=== PATIENT | male | born 2005 | race Caucasian/White ===

== ENCOUNTER 2023-05-11 21:42 | Emergency (ER) | payer OTHER, SELFPAY ==
[2023-05-11 21:43] VITALS: BP 140/90; BMI 21.9
--- NOTE | 2023-05-11 22:40 | ED.GENMED ---
History of Present Illness
General
Chief Complaint: Skin Problem
Exam Limitations: none
Time Seen by Provider: 05/11/23 22:14
Nursing documentation reviewed up to this point in time: agreed with
Travel History
Have you had any contact with someone who has COVID-19?: No
Do you have any symptoms of coronavirus? Fever > 100 degrees, chills, cough, shortness of breath, sore throat, loss of taste or smell, muscle aches, or headache?: No
History of Present Illness
History of Present Illness:
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
Allergic amoxicillin does not know the reaction no prior episodes
Past History
Past History
ED Past Medical History: None
ED Past Surgical History: Orthopedic (Left ACL repair)
Social History
Tobacco: Non-smoker
Alcohol: None
Drug: None
Personal: Single
Living: alone
Employment: Employed
Review of Systems
Review of Systems
All Other Systems: Not applicable
Constitutional: Reports fever
Respiratory: Reports no symptoms
Cardiac: Reports no symptoms
ABD/GI: Reports no symptoms
: Reports no symptoms
Musculoskeletal: Denies joint pain (Pain at the right elbow joint he is able to move without difficulty)
Skin: Reports other (Redness skin on the right elbow)
Phy Exam
Physical Exam
Physical Exam:
Physical Exam
General: no apparent distress, not acutely ill
Neck: No jaundice
Heart: s1/s2 regular rate and rhythm, no murmur. equal radial pulses.
Lungs: no acute respiratory distress. clear bilaterally
Neuro: alert and oriented. no focal neurological deficits
Skin: no rash
Psychiatric: well kept. interactive and cooperative
Extremities: Swelling redness surrounding the olecranon bursa on the right no fluctuance
Course
Orders/Labs/Results
Orders:
Orders
05/11/23 22:33
Doxycycline [Vibramycin] 100 mg PO NOW STA
Ibuprofen [Motrin] 600 mg PO NOW STA
05/11/23 22:40
Sling Right-Treatment ONCE
Vital Signs
Initial and Last Documented VS:
Initial Vital Signs
Temp Pulse Resp BP Pulse Ox
97.9 F 98 16 140/90 99
05/11/23 21:43 05/11/23 21:43 05/11/23 21:43 05/11/23 21:43 05/11/23 21:43
Last Documented Vital Signs
Temp Pulse Resp BP Pulse Ox
97.9 F 98 16 140/90 99
05/11/23 21:43 05/11/23 21:43 05/11/23 21:43 05/11/23 21:43 05/11/23 21:43
MDM/Problems Addressed
Differential Diagnosis Includes:
Olecranon bursitis cellulitis
MDM/Problems Addressed:
Swollen right elbow
*Pulse Oximetry
Patient hypoxic: no
*Critical Care Note
Total Time (30-74mins, 75-104mins- exclusive of procedures): Not Applicable
Update Note
Update Note:
Update patient with cellulitis likely early bursitis noted particular fluid to aspirate, will start on NSAIDs, antibiotics sling orthopedic follow-up ER promptly if worsening symptoms
ED Attending Note
-
Portions of this chart may have been created with voice recognition software.� Occasional wrong word or��sound alike� substitutions may have occurred due to the inherent limitations of voice recognition software.
Discharge Plan
Departure
Patient Disposition: Home (Routine Discharge)
Date of Disposition: 05/11/23
Time of Disposition: 22:52
Patient with high blood pressure during this ER visit?: No
Condition: Good
Discharge Problem:
Bursitis, olecranon
Instructions: Cellulitis (Skin Infection), Adult (DC), Bursitis ED
Prescriptions:
New
doxycycline hyclate 100 mg tablet
100 mg PO BID Qty: 20 0RF
ibuprofen 600 mg tablet
600 mg PO Q6H PRN (Reason: fever or pain) Qty: 20 0RF
Referrals:
UNKNOWN - PT DOES,NOT KNOW [Family Provider] -
Carmine Gutierrez MD [Active] - Next open appointment
Activity Restrictions/Additional Instructions:
Use sling, antibiotics as prescribed Motrin or Tylenol for pain follow-up with orthopedics return to the ER for worsening symptoms
Interventions
Interventions:
*Risk Screen - Suicide Last Done: 05/11/23 21:43
*Neglect/Abuse Screening Last Done: 05/11/23 21:43
ED- Fall Risk Assessment Last Done: 05/11/23 21:43
*ED COVID-19 Vaccine History Last Done: 05/11/23 21:43
[2023-05-11] MEDS: MOTRIN 600 MG PO (23:09)
[2023-05-11] MEDS: VIBRAMYCIN 100 MG PO (23:10)
[2023-05-11 23:38] VITALS: BP 129/80
== END 2023-05-11 23:38 | disposition home or self-care (01) ==
LOC: EMR 21:42
PROVIDERS: EMERGENCY PHYSICIAN Emergency Medicine
DX: M70.21 Olecranon bursitis, right elbow (principal); M25.521 Pain in right elbow; Z88.1 Allergy status to other antibiotic agents
CPT/HCPCS: 99283

== ENCOUNTER 2023-05-12 23:13 | Inpatient (IN) | payer OTHER, SELFPAY ==
[2023-05-12 18:53] VITALS: BP 135/89
[2023-05-12 19:16] LABS: % Basophils 0.4 % (0-2); % Eosinophils 2.3 % (0-6); % Immature Granulocytes 0.2 % (0-0.5); % Lymphocytes 18.9 % (20.5-51.1); % Monocytes 9.6 % (1.7-9.3); % Neutrophils 68.6 % (42.2-75.2); Absolute Eosinophils 0.2 10^3/uL (0-0.7); Absolute Lymphocytes 1.8 10^3/uL (1.2-3.4); Absolute Monocytes 0.9 10^3/uL (0.1-0.6); Absolute Neutrophils 6.6 10^3/uL (1.4-6.5); Hematocrit 43.5 % (39.0-52.0); Hemoglobin 15.2 g/dL (13.0-18.0); Mean Corp Hgb Conc. 34.9 g/dL (33.0-37.0); Mean Corpuscular Hgb 29.7 pg (27.0-31.0); Mean Platelet Volume 10.1 fL (7.4-10.4); Nucleated Red Blood Cells % 0 % (-); Platelet Count 229 10^3/uL (130-400); Red Blood Cell Count 5.12 10^6/uL (4.70-6.10); Red Cell Dist. Width 12.4 % (11.5-14.5); White Blood Cell Count 9.6 10^3/uL (4.8-10.8)
[2023-05-12 19:36] LABS: ALT (SGPT) 19 U/L (0-50); AST (SGOT) 28 U/L (17-59); Albumin 4.9 g/dl (3.5-5.0); Alkaline Phosphatase 88 U/L (38-126); Blood Urea Nitrogen 12 mg/dl (9-20); Calcium 9.9 mg/dl (8.4-10.2); Carbon Dioxide 28 mmol/L (22-30); Chloride 100 mmol/L (98-107); Glucose 101 mg/dl (70-99); Potassium 3.9 mmol/L (3.5-5.1); Sodium 138 mmol/L (135-145); Total Bilirubin 0.7 mg/dl (0.2-1.3); Total Protein 7.6 g/dl (6.3-8.2); eGFR > 60.00
--- NOTE | 2023-05-12 20:16 | ED.GENMED ---
History of Present Illness
<LEROY Naik - Last Filed: 05/13/23 00:08>
General
Chief Complaint: Fainting/Passed Out
Source: patient
Exam Limitations: none
Time Seen by Provider: 05/12/23 20:15
Nursing documentation reviewed up to this point in time: agreed with
Travel History
Have you had any contact with someone who has COVID-19?: No
Do you have any symptoms of coronavirus? Fever > 100 degrees, chills, cough, shortness of breath, sore throat, loss of taste or smell, muscle aches, or headache?: No
History of Present Illness
History of Present Illness:
Patient is a 17-year-old male who presents to the ER for syncope. Patient was seen here yesterday for swelling and pain to his right elbow. Patient reports he has had swelling to his right elbow for the past couple days however redness started
recently. He was seen here yesterday as documented for that and discharged on antibiotics. Today however he reports he presents back to the ER because of an episode of syncope. Prior to arrival he was laying in bed got up to use the back urinated
normally then after felt lightheaded while walking back to his room passed out and then got up and vomited after.
Patient notes that he has felt chills throughout the day and had a low grade temp of 100.2 .
He does report that The redness to his right arm has spread however he does feel that the swelling is decreased .
Patient did take 2 doses of his Doxycycline.
Past History
<LEROY Naik - Last Filed: 05/13/23 00:08>
Past History
ED Past Medical History: None
ED Past Surgical History: Orthopedic (Left ACL repair)
Social History
Tobacco: Non-smoker
Alcohol: None
Drug: None
Personal: Single
Living: alone
Employment: Employed
Review of Systems
<LEROY Naik - Last Filed: 05/13/23 00:08>
Review of Systems
Allergies reviewed?: Yes
All Other Systems: ROS reviewed and negative except as documented in HPI and ROS
Constitutional: Reports no symptoms
EENT: Reports no symptoms
Respiratory: Reports no symptoms
Cardiac: Reports no symptoms
ABD/GI: Reports nausea, vomiting and other (Nausea vomiting x 1 episode after syncope )
: Reports no symptoms
Musculoskeletal: Reports other (right elbow redness /discomfort )
Skin: Reports other (see above )
Neurological: Reports no symptoms
Psychiatric: Reports no symptoms
Phy Exam
<LEROY Naik - Last Filed: 05/13/23 00:08>
General Physical Exam
General Presentation: no apparent distress
General age: appears stated age
General Skin: warm and dry
General Habitus: normal
General Mental: alert
Neurological Exam
Neurological Exam: alert and oriented x3
Musculoskeletal Exam
Musculoskeletal Exam: other (rue with strong pulses + erythema to right elbow mildly tender upon palpation full ROM and good ROM on exam )
Skin Exam
Skin Exam: normal color and warm/dry
Psychiatric Exam
Psychiatric Exam: normal mood/affect
Course
<LEROY Naik - Last Filed: 05/13/23 00:08>
Orders/Labs/Results
Orders:
Orders
05/12/23 18:55
Electrocardiogram (*1) Urgent
Reason for Study: Syncope
EKG- Treatment ONCE
05/12/23 19:00
Complete Blood Count/With Diff Urgent
Comprehensive Metabolic Panel Urgent
05/12/23 20:35
0.9% Sodium Chloride 1000 ml [Nss] 1,000 ml IV BOLUS
05/12/23 22:00
Lactic Acid Q4H
Comment: CANCEL 2nd LACTIC ACID IF 1st LACTIC ACID IS LESS THAN 2
Blood Culture Q30M
ARNOLDO Source: Blood/Venous
Specimen Description:
Blood Culture Q30M
ARNOLDO Source: Blood/Venous
Specimen Description:
05/12/23 22:28
Clindamycin 600 mg/50 ml [Cleocin] 600 mg in 50 ml IV NOW
05/12/23 22:37
MRSA Screen Routine
ARNOLDO Source: Nose
Specimen Description:
05/12/23 22:39
Admit/Transfer Patient As Directed
Co-Sign Provider:
Level of Care: Inpatient admission
Assign to:: Telemetry
Physician / Group: quang chow
Diagnosis: right elbow cellulitis concern septic bursitis
Reason for Telemetry: Syncope
Date to Stop Telemetry: 05/14/23
Time to Stop Telemetry: 11:00
Reason for Hospitalization: right elbow cellulitis concern septic bursitis
Expected length of stay greater than two midnights?: Yes
ELOS- Estimated Length of Stay in days: 3
I certify the patient meets the requirements for IP care: Yes
Code Status As Directed
Resuscitation Status: Full Code
05/12/23 22:56
Vancomycin [Vancocin] 1,500 mg 0.9% Sodium Chloride [Nss] 20 ml 0.9% Sodium Chloride 250 ml [Nss] 250 ml IV NOW
05/12/23 23:45
VANCOMYCIN Pharmacy to Dose [VANCOCIN Pharmacy to Dose] 1 each Pharmacy To Prepare [Call Pharmacy To Prepare] 0 ml IV PER PROTOCOL
05/13/23 00:51
0.9% Sodium Chloride 1000 ml [Nss] 1,000 ml IV 100 mls/hr
Acetaminophen [Tylenol] 650 mg PO Q4HPRN PRN
Ondansetron Injectable [Zofran] 4 mg IV Q6HPRN PRN
Tramadol HCl [Ultram] 50 mg PO Q6HPRN PRN
05/13/23 00:51
Activity As Directed
Activity Level: As Tolerated
Pneumatic Compression Sleeves As Directed
Type: Knee high
Vital Signs As Directed
Frequency: Per unit guidelines
Ot Eval And Treat Routine
Pt Eval And Treat Routine
Activity Level: As Tolerated
DX Deep Vein Thrombosis Video Routine
05/13/23 06:00
Basic Metabolic Panel IN AM
Complete Blood Count/With Diff IN AM
05/13/23 Dinner
Regular
At Your Request: Non-Participating
Does patient need a safe tray?: No
05/14/23 06:00
Basic Metabolic Panel IN AM
Complete Blood Count/With Diff IN AM
05/15/23 06:00
Basic Metabolic Panel IN AM
Complete Blood Count/With Diff IN AM
Abnormal Lab Results
05/12/23
19:00
Absolute Neuts (auto) 6.6 H 10^3/uL
(1.4-6.5)
Absolute Monos (auto) 0.9 H 10^3/uL
(0.1-0.6)
Lymphocytes % 18.9 L %
(20.5-51.1)
Monocytes % 9.6 H %
(1.7-9.3)
Glucose 101 H mg/dl
(70-99)
05/12/23 19:00
05/12/23 19:00
Vital Signs
Initial and Last Documented VS:
Initial Vital Signs
Temp Pulse Resp BP Pulse Ox
98.9 F 96 18 135/89 99
05/12/23 18:53 05/12/23 18:53 05/12/23 18:53 05/12/23 18:53 05/12/23 18:53
Last Documented Vital Signs
Temp Pulse Resp BP Pulse Ox
97.9 F 84 18 116/52 99
05/13/23 01:15 05/13/23 01:15 05/13/23 01:15 05/13/23 01:15 05/13/23 01:15
Sales Route Driver consulted with Physician
Sales Route Driver consulted with physician?: Yes
Name of Physician Consulted: Erik
<Sundar Valencia MD - Last Filed: 05/13/23 01:25>
Orders/Labs/Results
Orders:
Orders
05/12/23 18:55
Electrocardiogram (*1) Urgent
Reason for Study: Syncope
EKG- Treatment ONCE
05/12/23 19:00
Complete Blood Count/With Diff Urgent
Comprehensive Metabolic Panel Urgent
05/12/23 20:35
0.9% Sodium Chloride 1000 ml [Nss] 1,000 ml IV BOLUS
05/12/23 22:00
Lactic Acid Q4H
Comment: CANCEL 2nd LACTIC ACID IF 1st LACTIC ACID IS LESS THAN 2
Blood Culture Q30M
ARNOLDO Source: Blood/Venous
Specimen Description:
Blood Culture Q30M
ARNOLDO Source: Blood/Venous
Specimen Description:
05/12/23 22:28
Clindamycin 600 mg/50 ml [Cleocin] 600 mg in 50 ml IV NOW
05/12/23 22:37
MRSA Screen Routine
ARNOLDO Source: Nose
Specimen Description:
05/12/23 22:39
Admit/Transfer Patient As Directed
Co-Sign Provider:
Level of Care: Inpatient admission
Assign to:: Telemetry
Physician / Group: quang chow
Diagnosis: right elbow cellulitis concern septic bursitis
Reason for Telemetry: Syncope
Date to Stop Telemetry: 05/14/23
Time to Stop Telemetry: 11:00
Reason for Hospitalization: right elbow cellulitis concern septic bursitis
Expected length of stay greater than two midnights?: Yes
ELOS- Estimated Length of Stay in days: 3
I certify the patient meets the requirements for IP care: Yes
Code Status As Directed
Resuscitation Status: Full Code
05/12/23 22:56
Vancomycin [Vancocin] 1,500 mg 0.9% Sodium Chloride [Nss] 20 ml 0.9% Sodium Chloride 250 ml [Nss] 250 ml IV NOW
05/12/23 23:45
VANCOMYCIN Pharmacy to Dose [VANCOCIN Pharmacy to Dose] 1 each Pharmacy To Prepare [Call Pharmacy To Prepare] 0 ml IV PER PROTOCOL
05/13/23 00:51
0.9% Sodium Chloride 1000 ml [Nss] 1,000 ml IV 100 mls/hr
Acetaminophen [Tylenol] 650 mg PO Q4HPRN PRN
Ondansetron Injectable [Zofran] 4 mg IV Q6HPRN PRN
Tramadol HCl [Ultram] 50 mg PO Q6HPRN PRN
05/13/23 00:51
Activity As Directed
Activity Level: As Tolerated
Pneumatic Compression Sleeves As Directed
Type: Knee high
Vital Signs As Directed
Frequency: Per unit guidelines
Ot Eval And Treat Routine
Pt Eval And Treat Routine
Activity Level: As Tolerated
DX Deep Vein Thrombosis Video Routine
05/13/23 06:00
Basic Metabolic Panel IN AM
Complete Blood Count/With Diff IN AM
05/13/23 Dinner
Regular
At Your Request: Non-Participating
Does patient need a safe tray?: No
05/14/23 06:00
Basic Metabolic Panel IN AM
Complete Blood Count/With Diff IN AM
05/15/23 06:00
Basic Metabolic Panel IN AM
Complete Blood Count/With Diff IN AM
Abnormal Lab Results
05/12/23
19:00
Absolute Neuts (auto) 6.6 H 10^3/uL
(1.4-6.5)
Absolute Monos (auto) 0.9 H 10^3/uL
(0.1-0.6)
Lymphocytes % 18.9 L %
(20.5-51.1)
Monocytes % 9.6 H %
(1.7-9.3)
Glucose 101 H mg/dl
(70-99)
05/12/23 19:00
05/12/23 19:00
Vital Signs
Initial and Last Documented VS:
Initial Vital Signs
Temp Pulse Resp BP Pulse Ox
98.9 F 96 18 135/89 99
05/12/23 18:53 05/12/23 18:53 05/12/23 18:53 05/12/23 18:53 05/12/23 18:53
Last Documented Vital Signs
Temp Pulse Resp BP Pulse Ox
97.9 F 84 18 116/52 99
05/13/23 01:15 05/13/23 01:15 05/13/23 01:15 05/13/23 01:15 05/13/23 01:15
<LEROY Naik - Last Filed: 05/13/23 00:08>
MDM/Problems Addressed
Differential Diagnosis Includes:
Not limited to vasovagal episode syncope episode, worsening cellulitis of right elbow
MDM/Problems Addressed:
Patient is a 17-year-old male who was seen here yesterday for bursitis/redness to right elbow patient today reports increasing redness to the area of low-grade fevers. Patient also did have a syncopal episode prior to arrival he was in bed all day
not feeling well got up to use the bathroom and urinated after felt dizzy lightheaded and passed out and then vomited. Patient presents awake alert no acute distress he is afebrile here with a normal white count. On exam however he does have
significant redness around the right elbow. He does have good range of motion less likely septic arthritis. Pt evaluated by DR Valencia . With worsening redness and on Oral antibx will adm for cellulitis . syncope likely from possible pain. pt stable
in no distress.
<LEROY Naik - Last Filed: 05/13/23 00:08>
*Pulse Oximetry
Patient hypoxic: no
*Critical Care Note
Total Time (30-74mins, 75-104mins- exclusive of procedures): Not Applicable
Data Reviewed
Review of Other/Old Records Reveals: Other (previous ED visit )
Source: patient
ED Attending Note
<LEROY Naik - Last Filed: 05/13/23 00:08>
-
Portions of this chart may have been created with voice recognition software.� Occasional wrong word or��sound alike� substitutions may have occurred due to the inherent limitations of voice recognition software.
<Sundar Valencia MD - Last Filed: 05/13/23 01:25>
ED Attending Note
Patient seen and examined by attending physician: Yes
ED Attending Note:
Patient presents to ED secondary to worsening pain and redness over his right elbow, despite taking antibiotics for the past 24 hours. Patient reports temp of 100.8 at home earlier today. In addition, patient reports feeling dizzy and not feeling
well all day long, along with multiple vomiting episodes. Today, as he was walking back from the restroom, he felt extremely lightheaded along with elbow pain, and subsequently found himself lying on the floor. Patient was attended to by his
girlfriend quickly. At the time of evaluation, patient denies headache. Denies chest palpitations. Denies diarrhea. Denies history of skin infection. Denies history of injury to his elbow.
Physical Exam
General: mild distress, not acutely ill. afebrile
Head: nc/at. eomi
Neck: supple. no meningeal signs.
Heart: s1/s2 regular rate and rhythm, no murmur. equal radial pulses.
Lungs: no acute respiratory distress. clear bilaterally
Abdomen: normal bowel sounds. not tender.
Neuro: alert and oriented. no focal neurological deficits
Skin: no rash
Psychiatric: well kept. interactive and cooperative
Extremities: swelling/erythema/warmth/tenderness noted over right olecranon, with normal range of motion.
History and exam concerning for worsening bursitis versus cellulitis, less likely septic arthritis. Syncopal episode at home, likely mediated by pain along with vagal response. Patient will be admitted for IV antibiotics and further evaluation.
Discharge Plan
Departure
Patient Disposition: Admit
Date of Disposition: 05/12/23
Time of Disposition: 21:47
Presentation/result/management discussed w/ accepting MD/DO: Hospitalist
Patient with high blood pressure during this ER visit?: Yes
Condition: Fair
Covid-19: Not Applicable
Discharge Problem:
Cellulitis of right elbow
Interventions
Interventions:
*Risk Screen - Suicide Last Done: 05/13/23 00:58
*Neglect/Abuse Screening Last Done: 05/12/23 18:53
ED- Fall Risk Assessment Last Done: 05/12/23 21:10
*ED COVID-19 Vaccine History Last Done: 05/13/23 00:58
ED- Cardiac Assessment Last Done: 05/12/23 23:44
ED- Neurological Assessment Last Done: 05/12/23 23:44
[2023-05-12] MEDS: NSS 1000 IV (21:06)
--- NOTE | 2023-05-12 22:12 | HPS.HSE ---
Addendum entered and electronically signed by Felton Flanagan DO 05/12/23 23:53:
Patient seen and examined independently. Agree with findings and plan as set forth by LEROY Chin.
Patient is a 17y M with no significant PMH who presents to ED complaining of 3 days of R elbow pain. Patient states that he was doing repetitive yard work, but denies any injury, trauma, etc. He noted increased swelling and redness around the
elbow last PM and presented to the ED for evaluation. He was started on PO doxycycline and has taken two doses of this thus far. Today, he felt lightheaded and woozy while walking out of the bathroom and notes that he sat down and then passed out.
He briefly lost consciousness and was woken by his girlfriend. He then felt nauseated and had emesis.
Patient was noted at home to have fever of 100.8. He returned to the ED for further evaluation.
Ass:
Septic Bursitis Right Elbow
Fever secondary to the above
Vasovagal Syncope secondary to the above
Plan:
Admit for further evaluation and treatment given persistent / worsening symptoms despite PO abx.
Monitor on tele overnight given syncope - but seems likely vasovagal.
Patient with some tightness during ROM, but no exquisite pain to suggest septic arthritis.
Ortho evaluation in the AM.
Change back to PO abx once clinical improvement is noted.
Check Lyme status.
Follow for any new / worsening symptoms.
Original Note:
Family Physician
-
Family Physician: * NONE
Chief Complaint
-
Right elbow swelling/erythema/pain
History of Present Illness
17-year-old male who was seen in the ER yesterday for swelling, pain to his right elbow for the past couple days. He reports pain with movement of his elbow. He was started on doxycycline of which she had took 2 doses. He reports feeling chills
throughout today . States he took his temperature before he went to the bathroom it was 99.8 upon walking back from the bathroom he felt like he was going to pass out he sat himself down to the the chair then his girlfriend walked in and he felt
like he was going to vomit. He reports his temperature after that was 100.8. He reports the erythema to his elbow is expanding up on his arm since yesterday. He states he was doing yard work with mulching and weeding Tuesday to Tuesday then
developed erythema and pain to elbow on Tuesday. He denies headache, chest pain, palpitations, shortness breath, cough, abdominal pain, nausea, vomiting, diarrhea, urinary symptoms. He has past medical history of anxiety, depression, nicotine vape
use.
Medical History
Past Medical History
Past Medical History: Reports Other (Anxiety, depression, nicotine vape use)
Past Surgical History: Reports Other (Left ACL repair)
Social History
Tobacco: Vaping
Alcohol: None
Drug: None
Personal: Single
Living: Alone
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
Family History
Family History: Adopted
Allergies / Home Medications
Allergies reflects when Allergies were last updated in [facility].
Home Medications with original date entered in [facility]
Allergy/Medication List:
Allergies
Allergy/AdvReac Type Severity Reaction Status Date / Time
amoxicillin Allergy Unknown Verified 05/12/23 18:54
Home Medications
doxycycline hyclate 100 mg tablet 100 mg PO BID #20 tabs 05/11/23
5-HTP 18.8 mg-tyrosine 187.5 [id number]-chrom capsule 1 cap PO DAILY 05/12/23
ibuprofen 600 mg tablet 600 mg PO Q6HPRN PRN fever or pain 05/12/23
therapeutic multivitamin 1 tab PO DAILY 05/12/23
Review of Systems
-
History Source: Patient and Family (Girlfriend at bedside)
A 12 point ROS was completed and negative except as noted: Yes
Constitutional: Reports Fever and Chills; Denies Fatigue
EENT: Denies Sore Throat or Runny Nose
Respiratory: Denies Cough or Trouble Breathing
Cardiac: Denies Chest Pain, Diaphoresis, Palpitations or Syncope
Abdomen/GI: Denies Abdominal Pain, Nausea, Vomiting, Diarrhea or Constipated
: Denies Dysuria, Frequency, Flank Pain, Incontinence or Difficulty Voiding
Musculoskeletal: Reports Joint Pain and Joint Swelling (With erythema to right elbow expanding above and below)
Skin: Denies Itching or Rash
Neurological: Reports Dizzy; Denies Headache
Endocrine: Reports No Symptoms
Hematologic/Lymphatic: Reports No Symptoms
Psych: Reports Calm
Physical Exam
Vital Signs
Vital Signs
Temp Pulse Resp BP Pulse Ox
98.9 F 74 14 135/89 100
05/12/23 18:53 05/12/23 22:03 05/12/23 22:03 05/12/23 18:53 05/12/23 21:53
Physical Exam
General: Pain, Fever and Chills
HEENT: NormoCephalic, Anicteric, PERRLA, [place] Conjunctivae and No Ptosis
Respiratory: Clear; No Wheezes, Rales or Rhonchi
Cardiac: S1/S2 and Regular Rhythm; No Murmur, Rub, Gallop or Peripheral Edema
Breast: Deferred by me
GI: Soft, Non Tender, Non Distended, Normal Bowel Sounds and No Hepatosplenomegaly
Rectal: Deferred by Provider
Genito-urinary: Deferred by me
Musculoskeletal: No Clubbing, No Cyanosis and Other (With erythema to right elbow expanding above and below); No Edema, Left Upper Extremity, Edema, Right Upper Extremity, Edema, Left Lower Extremity or Edema, Right Lower Extremity
Skin: Warm and Dry; No Rash
Neuro: AO x 3, No Motor Deficits, Nonfocal/grossly intact, Cranial Nerves Intact and No Sensory Deficits; No Slurred Speech, Facial Droop, Tremors or Sedated
Psych: Calm
Laboratory Results
-
05/12/23 19:00
05/12/23 19:00
Laboratory Results
Total Bilirubin 0.7 mg/dl (0.2-1.3) 05/12/23 19:00
AST 28 U/L (17-59) 05/12/23 19:00
ALT 19 U/L (0-50) 05/12/23 19:00
Alkaline Phosphatase 88 U/L (38-126) 05/12/23 19:00
Impression/Plan
-
Impression/plan:
Admit to MedSurg
#Right elbow cellulitis/olecranon bursitis concern septic bursitis
-Blood cultures x 2
-Follow CBC, BMP
-Tylenol for fever
-Iv Vancomycin
- Check MRSA swab
- consult ortho- dr gutierrez made aware
#Anxiety/depression
Patient takes gusb-sop-zorzsfj 5 HTP vitamin along with multivitamin
#Nicotine vape use daily
Cessation advised
DVT prophylaxis
SCDs
Full code
[2023-05-12 22:21] LABS: Lactic Acid 0.8 mmol/L (0.7-2.0)
[2023-05-12 22:45] VITALS: BMI 21.1
[2023-05-12 23:37] VITALS: BP 125/82
[2023-05-12] MEDS: VANCOCIN 300 ML IV (23:42)
[2023-05-12] MEDS: VANCOCIN 300 MG IV (23:42)
[2023-05-13] VITALS (10 sets, daily range): BP systolic 75–125; BP diastolic 51–88; BMI 20.7
[2023-05-13] MEDS: NSS 1000 IV ×2 (01:11→10:27)
--- NOTE | 2023-05-13 01:33 | PTCARENOTE ---
Addendum entered by Collins Pennington RN 05/13/23 03:32:
stopped Vancocin at 01:30. Restarted at slower rate at 03:30. PRESENTATION TEAM MEMBER states to give IV Benadryl and wait an hour before restarting.
Original Note:
Patient came up from the ED with IV Vancocin running at 125ml/hr. Patient color was red. Answered all admission questions okay. Patient then felt pruritus and uncomfortable. This nurse stopped the IV Vancocin, flushed the tubing and messaged the
PRESENTATION TEAM MEMBER. Order for Benadryl obtained. Patient denies SOB. No swelling noted and telemetry reading normal sinus rhythm.
[2023-05-13] MEDS: BENADRYL 25 MG IV (01:53)
[2023-05-13 06:29] LABS: % Basophils 0.4 % (0-2); % Eosinophils 3.4 % (0-6); % Immature Granulocytes 0.1 % (0-0.5); % Lymphocytes 26.8 % (20.5-51.1); % Monocytes 11.7 % (1.7-9.3); % Neutrophils 57.6 % (42.2-75.2); Absolute Eosinophils 0.3 10^3/uL (0-0.7); Absolute Lymphocytes 2.1 10^3/uL (1.2-3.4); Absolute Monocytes 0.9 10^3/uL (0.1-0.6); Absolute Neutrophils 4.5 10^3/uL (1.4-6.5); Hemoglobin 14.3 g/dL (13.0-18.0); Mean Corpuscular Hgb 29.1 pg (27.0-31.0); Mean Corpuscular Volume 85.5 fL (80.0-94.0); Mean Platelet Volume 10.4 fL (7.4-10.4); Nucleated Red Blood Cells % 0 % (-); Platelet Count 211 10^3/uL (130-400); Red Blood Cell Count 4.91 10^6/uL (4.70-6.10); Red Cell Dist. Width 12.5 % (11.5-14.5); White Blood Cell Count 7.8 10^3/uL (4.8-10.8)
[2023-05-13 06:47] LABS: Blood Urea Nitrogen 12 mg/dl (9-20); Calcium 9.4 mg/dl (8.4-10.2); Carbon Dioxide 25 mmol/L (22-30); Chloride 102 mmol/L (98-107); Estimated Creatinine Clearance > 125 ml/min; Glucose 89 mg/dl (70-99); Potassium 4.1 mmol/L (3.5-5.1); Sodium 139 mmol/L (135-145); eGFR > 60.00
--- NOTE | 2023-05-13 07:15 | W.PN.UPDATE ---
Update Note
Progress Note Update
Full H&P to follow
17-year-old male admitted for right elbow septic bursitis.
Patient examined this morning; redness and swelling about the right elbow without apparent effusion. No significant palpable fluid collection of the bursa
Recommend empiric treatment is being given at this time. Orthopedic surgery will continue to follow to monitor for collection of purulent fluid that may need to be decompressed. Can consider either MSK ultrasound or MRI for further evaluation for
fluid collection if needed beyond physical examination
--- NOTE | 2023-05-13 08:22 | PHA.VAN.IN ---
Assessment
- Assessment
Renal Function: Appears similar to baseline
AUC Dosing Plan
- Dosing Variables
Dosing Weight (kg): 75
Dosing CrCl (ml/min): 125
Vd coefficient (L/kg): 0.7
- Empiric Dosing
Initial / Loading Dose: 1500mg - 05/11 23:42
Maintenance Regimen: Vanc 1000mg Q8H - first dose at noon then Q8 from 2200
Estimated AUC (mcg*h/mL): 557
Estimated Peak (mcg*h/mL): 32.9
Estimated Trough (mcg/ml): 15.4
Estimated Half Life (H): 6.4
Given age, patient likely to have increased clearance compared to predictions based on population-PK
- Monitoring
No levels ordered at this time: consider levels in next few days
Pharmacokinetics Vancomycin I
- -
Patient Age: 17
Patient Sex: Male
Vancomycin Day #: 1
Indication: Skin And Soft Tissue
Requesting Provider: Nancy Santiago
Pertinent Antimicrobial Allergies:
amoxicillin - unknown
Height / Weight:
Height 6 ft 3 in
Actual Weight 75.041 kg
- Vital Signs / Lab Results
Temp Pulse Resp BP Pulse Ox
97.8 F 71 18 102/62 98
05/13/23 04:04 05/13/23 04:04 05/13/23 04:04 05/13/23 04:04 05/13/23 04:04
Lab Results - Hematology
05/12/23 05/13/23
19:00 05:22
WBC 9.6 7.8
Lab Results - Chemistry
05/12/23 05/13/23
19:00 05:22
BUN 12 12
Creatinine 0.8 0.8
Estimated Creat Clear > 125
Albumin 4.9
05/12/23 05/13/23
22:00 01:45
Lactic Acid 0.8 Cancelled
--- NOTE | 2023-05-13 09:28 | W.PN.HOSP.TC ---
Today's Communication/Plan
-
see A/P
Assessment / Plan
Assessment / Plan
HPI: 17y M with no significant PMH who presented to ED complaining of 3 days of R elbow pain.�Patient states that he was doing repetitive yard work, but denies any injury, trauma, etc.�He noted increased swelling and redness around the elbow and
presented to the ED for evaluation 2 days ago.� He was started on PO doxycycline and has taken two doses thus far.�
On DOA, he felt lightheaded and woozy while walking out of the bathroom and notes that he sat down and then passed out.�He briefly lost consciousness and was woken by his girlfriend. He then felt nauseated and had emesis.
Patient was noted at home to have fever of 100.8.� He returned to the ED for further evaluation.
A/P:
# Septic Bursitis Right Elbow, failed outpt PO Abx with doxycycline
Follow blood Cx
Cont Abx, change vanc to Linezolid (RN informed that pt intolerant of vanc)
Follow Lyme serology
ortho following, apparently could not tap R elbow
IR CS to attempt US guided arthrocentesis
ID CS
OT CS
# Vasovagal Syncope secondary to the above
tele noted bradycardia (likely physiological due to sleeping)
Cont to monitor tele
DVT ppx: SCD
FC
DW RN
DW girlfriend at bedside
Anticipated Discharge: Within 24 hours
Subjective/Interval History
-
Date of Service: May 13, 2023
Objective Data
-
Labs:
Laboratory Results
05/13/23
05:22
WBC 7.8
Hgb 14.3
Hct 42.0
Plt Count 211
Sodium 139
Potassium 4.1
Chloride 102
Carbon Dioxide 25
BUN 12
Creatinine 0.8
Glucose 89
Calcium 9.4
Vital Signs:
Vital Signs
Temp Pulse Resp BP Pulse Ox
36.6 C 58 16 108/63 99
05/13/23 07:05 05/13/23 07:05 05/13/23 07:05 05/13/23 07:05 05/13/23 07:05
I&O
05/12/23 05/13/23 05/14/23
06:59 06:59 06:59
Intake Total 120 / 120
Balance 120 / 120
Review of Systems
-
All other systems: Reviewed and negative
Physical Exam
-
General: Well Developed, Well Nourished, No Apparent Distress, Comfortable and Conversant; Negative Respiratory Distress
HEENT: Normocephalic, Atraumatic, Nose Appears Normal and Ears Appear Normal; Negative Oxygen
Respiratory: Clear to Auscultation and Non Labored Respirations; Negative Accessory Resp Muscle Use
Cardiac: Regular Rhythm and S1/S2
GI: Soft, Nontender, Nondistended and Normal Bowel Sounds
Skin: Warm, Dry and Other (R elbow redness, swelling)
Neuro: Awake, Alert, Oriented and AO x 3
Psych: Calm and Intact Judgement/Insight
Data Reviewed
-
Labs: Labs Reviewed by me
[2023-05-13] MEDS: ZYVOX 600 MG 300 IV ×2 (10:26→21:55)
--- NOTE | 2023-05-13 10:32 | CON.ID ---
Chief Complaint / Past History
Chief Complaint
redness, swelling over the elbow
History of Present Illness
Mr Piper is a 17 year old male without significant past medical history who presented here for a 3 day history of progressive right elbow pain, swelling after doing repetitive yard work. He was started on doxycycline and took two doses, then felt
light headed walking to the bathroom, sat down and passed out. Noted fever at home to 100.8. Presented here
Since arrival here no judith fevers, BP stable, wbc 9.6 on arrival and 7.8 today, hgb 14, plt 211, cr 0.8, blood cultures x2 in progress, mrsa screen pending, started on vancomycin and clindamycin, later with some pruritus and switched to linezolid.
Overnight with improved erythema and swelling. ID is consulted for assistance with management.
Past History
Additional Past Medical History:
Anxiety, depression, nicotine vape use
Additional Past Surgical History:
Left ACL repair
Allergy History:
amoxicillin Allergy (Verified 05/12/23 18:54)
Unknown
Medications Reviewed: Yes
Social History
Tobacco: Vaping
Alcohol: None
Drug: None
Family History
Family History: Not Pertinent
Review of Systems
Review of Systems
General: Fever; Negative Chills
All systems: All other systems were reviewed and were negative
Vital Signs
Temp Pulse Resp BP Pulse Ox
97.8 F 58 16 108/63 99
05/13/23 07:05 05/13/23 07:05 05/13/23 07:05 05/13/23 07:05 05/13/23 07:05
Physical Exam
Physical Exam
Constitutional: No Acute Distress
Cardiovascular: Regular Rate and S1/S2; Negative Murmur or Rub
Pulmonary: Clear and Symmetric; Negative Wheezes, Rales or Rhonchi
Gastrointestinal: Soft, Non Tender, Non Distended and Normal Bowel Sounds
Extremities: Other (moderate swelling of the right elbow, erythema regressing, area is somewhat fluctuant)
Skin: Warm and Dry; Negative Rash or Jaundice
Lab / Diagnostic Study Results
05/13/23 05:22
05/13/23 05:22
Abs Immat Gran (auto) 0.0 10^3/uL (0-0.05) 05/13/23 05:22
Absolute Neuts (auto) 4.5 10^3/uL (1.4-6.5) 05/13/23 05:22
Absolute Lymphs (auto) 2.1 10^3/uL (1.2-3.4) 05/13/23 05:22
Absolute Monos (auto) 0.9 10^3/uL (0.1-0.6) H 05/13/23 05:22
Absolute Basos (auto) 0.0 10^3/uL (0-0.2) 05/13/23 05:22
Immature Gran % 0.1 % (0-0.5) 05/13/23 05:22
Neutrophils % 57.6 % (42.2-75.2) 05/13/23 05:22
Lymphocytes % 26.8 % (20.5-51.1) 05/13/23 05:22
Monocytes % 11.7 % (1.7-9.3) H 05/13/23 05:22
Eosinophils % 3.4 % (0-6) 05/13/23 05:22
Basophils % 0.4 % (0-2) 05/13/23 05:22
Lactic Acid Cancelled 05/13/23 01:45
Microbiology Results
Micro:
05/12/23 22:00 Blood Culture - Pending
Blood/Venous
05/12/23 22:00 Blood Culture - Pending
Blood/Venous
05/13/23 00:01 MRSA Screen - Pending
Nose
Assessment / Plan
Septic Bursitis
- pruritus with vancomycin was likely red man syndrome
- switch linezolid to oral tomorrow - to complete 14 day total course
- hold tramadol while on linezolid
- reviewed that relapse is possible post treatment, if that is the case, then would need to consider bursectomy
- stable for dc from ID perspective
--- NOTE | 2023-05-13 15:39 | CM ---
Addendum entered by Raquel Floyd 05/13/23 15:42:
Pharmacy is [facility]. PCP is [facility] in [place], [place].
Original Note:
Initial assessment completed with patient who is a student at [employer]. He is independent, drives. No DME, no in-home services. Anticipate no needs at discharge.
--- NOTE | 2023-05-13 16:21 | W.PN.UPDATE ---
Update Note
Progress Note Update
US did not show significant joint effusion of the right elbow. There was a small amount of bursal fluid, approximately 4 cc of blood tinged cloudy fluid was aspirated and sent for laboratory analysis. No fluid remaining in the bursa after
aspiration.
--- NOTE | 2023-05-13 16:35 | CON.ORTHO ---
Consultation
-
Date/Time Consultation Requested: 05/12/2023 2314
Date/Time Consultation Performed: 05/13/2023 0700
Requesting Provider: LEROY Santiago
Performing Provider: BRIE Davis, Dr. Joseph Dao
Reason for Consultation: R elbow septic bursitis
Consultation - Orthopedics
History
17-year-old male presenting to [facility] emergency room with 3 days of right elbow pain. No specific injury or trauma but is relatively active with with yard work. He was seen earlier in the week previously with concern for cellulitis of the
elbow was placed on oral antibiotics however he is progressively worsened with elevated temperature and reported disorientation.
Allergies / Home Medications
Allergy/AdvReac Type Severity Reaction Status Date / Time
amoxicillin Allergy Unknown Verified 05/12/23 18:54
vancomycin Allergy Itching/'hot Verified 05/13/23 16:26
all over'
Medication Instructions Recorded
doxycycline hyclate 100 mg tablet 100 mg PO BID #20 tabs 05/11/23
5-HTP 18.8 mg-tyrosine 187.5 1 cap PO DAILY 05/12/23
[id number]-chrom
capsule
ibuprofen 600 mg tablet 600 mg PO Q6HPRN PRN fever or pain 05/12/23
therapeutic multivitamin 1 tab PO DAILY 05/12/23
Vital Signs / Lab Results
Past Medical History
Anxiety, depression, nicotine vape use
Past Surgical History: L ACL reconstruction
Social History
Tobacco: Vaping
Alcohol: None
Drug: None
Personal: Single
Living: Alone
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
Temp Pulse Resp BP Pulse Ox
98.5 F 76 18 125/58 100
05/13/23 15:36 05/13/23 16:22 05/13/23 16:22 05/13/23 16:22 05/13/23 16:22
05/13/23 05:22
05/13/23 05:22
Physical examination: Examination of the right upper extremity shows neurovascular intact C5-T1. Motor function intact AIN PIN ulnar nerve brisk capillary fill is 2 seconds palp radial pulse 2+. Sensation tact light touch to the radial ulnar
median nerve. He is able demonstrate complete elbow range of motion with mild discomfort. There is erythema and swelling about the right elbow without obvious effusion consistent with soft tissue swelling. There is bogginess about the right elbow
and palpable suspected hypertrophic bursa more than fluctuant localized fluid collection
Labs: WBC 7.8,
Imaging: None
Assessment / Plan
17-year-old male admitted to [facility] for concern for septic bursitis of the elbow with erythema and soft tissue swelling with suspected likely hypertrophic bursa without obvious fluid collection.
-Can consider advanced imaging to include musculoskeletal ultrasound versus MRI of the right elbow if there is a more obvious fluid collection; consider aspiration for consideration of surgical debridement if there is fluid collection.
-Continue with current antibiotic course regimen relative rest of the right upper extremity.
-Orthopedic surgical continue to follow and monitor for evidence of a more significant fluid collection immediate consideration for surgical debridement
[2023-05-14] MEDS: TYLENOL 650 MG PO (00:07)
[2023-05-14] MEDS: NSS 1000 IV ×2 (01:37→09:05)
[2023-05-14 03:26] VITALS: BP 109/59
[2023-05-14] MEDS: ZYVOX 600 MG PO (06:03)
[2023-05-14 07:10] VITALS: BP 113/65
--- NOTE | 2023-05-14 07:11 | W.PN.UPDATE ---
Update Note
Progress Note Update
Patient reports right elbow swelling, pain and redness improved since yesterday. No fevers or chills overnight. His white count has been normal and pending this morning at time of this dictation. He seems to be tolerating antibiotics. Yesterday
IR aspirated small amount of fluid from the olecranon bursa and decompressed it nicely. Cultures obviously still pending. I suggest adding K-pad or heating pad once home and continue with antibiotics per infectious disease. Close follow-up with
orthopedics on outpatient basis and if redness worsens he might need to consider bursectomy.
--- NOTE | 2023-05-14 07:36 | W.PN.UPDATE ---
Update Note
Progress Note Update
Patient seen and examined. AVSS. Erythema decreased. No fluctuance. Full range of motion. NVI distally. On antibiotics per ID. If discharged, close followup in the office next week.
[2023-05-14 08:32] LABS: Hematocrit 40.4 % (39.0-52.0); Mean Corp Hgb Conc. 34.7 g/dL (33.0-37.0); Mean Corpuscular Hgb 29.5 pg (27.0-31.0); Mean Corpuscular Volume 85.1 fL (80.0-94.0); Mean Platelet Volume 10.5 fL (7.4-10.4); Platelet Count 206 10^3/uL (130-400); Red Blood Cell Count 4.75 10^6/uL (4.70-6.10); Red Cell Dist. Width 12.4 % (11.5-14.5); White Blood Cell Count 6.5 10^3/uL (4.8-10.8)
--- NOTE | 2023-05-14 09:00 | W.PN.HOSP.TC ---
Addendum entered and electronically signed by Kristina Bacon MD 05/14/23 13:33:
total DC time 35 min
Original Note:
Today's Communication/Plan
-
DC home today
Assessment / Plan
Assessment / Plan
HPI: 17y M with no significant PMH who presented to ED complaining of 3 days of R elbow pain.�Patient states that he was doing repetitive yard work, but denies any injury, trauma, etc.�He noted increased swelling and redness around the elbow and
presented to the ED for evaluation 2 days ago.� He was started on PO doxycycline and has taken two doses thus far.�
On DOA, he felt lightheaded and woozy while walking out of the bathroom and notes that he sat down and then passed out.�He briefly lost consciousness and was woken by his girlfriend. He then felt nauseated and had emesis.
Patient was noted at home to have fever of 100.8.� He returned to the ED for further evaluation.
A/P:
# Septic Bursitis Right Elbow, failed outpt PO Abx with doxycycline
blood Cx neg
IV vanc was changed to IV Linezolid (RN informed that pt intolerant of vanc). Plan to DC on PO linezolid , to complete 14 day total course
Follow Lyme serology
ortho following, apparently could not tap R elbow
s/p IR US guided arthrocentesis 05/12, small amount of bursal fluid, approximately 4 cc of blood tinged cloudy fluid was aspirated and sent for laboratory analysis. No fluid remaining in the bursa after aspiration.
Pt can follow-up with orthopedics outpatient closely and if redness worsens he might need to consider bursectomy.
# Vasovagal Syncope secondary to the above
tele noted bradycardia (likely physiological due to sleeping)
Cont to monitor tele
DVT ppx: SCD
FC
DW RN
DW girlfriend at bedside
Anticipated Discharge: Today
Subjective/Interval History
-
Date of Service: May 14, 2023
Objective Data
-
Labs:
Laboratory Results
05/14/23
07:22
WBC 6.5
Hgb 14.0
Hct 40.4
Plt Count 206
Sodium Pending
Potassium Pending
Chloride Pending
Carbon Dioxide Pending
BUN Pending
Creatinine Pending
Glucose Pending
Calcium Pending
Vital Signs:
Vital Signs
Temp Pulse Resp BP Pulse Ox
36.3 C 69 16 113/65 99
05/14/23 07:10 05/14/23 07:10 05/14/23 07:10 05/14/23 07:10 05/14/23 07:10
I&O
05/13/23 05/14/23 05/15/23
06:59 06:59 06:59
Intake Total 120 / 120 1560 / 1560
Balance 120 / 120 1560 / 1560
Review of Systems
-
All other systems: Reviewed and negative
Physical Exam
-
General: Well Developed, Well Nourished, No Apparent Distress, Comfortable and Conversant; Negative Respiratory Distress
HEENT: Normocephalic, Atraumatic, Nose Appears Normal and Ears Appear Normal; Negative Oxygen
Respiratory: Clear to Auscultation and Non Labored Respirations; Negative Accessory Resp Muscle Use
Cardiac: Regular Rhythm and S1/S2
GI: Soft, Nontender, Nondistended and Normal Bowel Sounds
Skin: Warm, Dry and Other (R elbow redness, swelling has resolved)
Neuro: Awake, Alert, Oriented and AO x 3
Psych: Calm and Intact Judgement/Insight
Data Reviewed
-
Labs: Labs Reviewed by me
[2023-05-14] MEDS: ZYVOX PO ×2 (09:02→09:07)
[2023-05-14 09:19] LABS: Blood Urea Nitrogen 13 mg/dl (9-20); Calcium 9.1 mg/dl (8.4-10.2); Carbon Dioxide 26 mmol/L (22-30); Chloride 103 mmol/L (98-107); Estimated Creatinine Clearance > 125 ml/min; Glucose 86 mg/dl (70-99); Potassium 4.3 mmol/L (3.5-5.1); Sodium 137 mmol/L (135-145); eGFR > 60.00
--- NOTE | 2023-05-14 10:18 | CM ---
Reviewed the chart notes and spoke with the patient and his girlfriend at the bedside. The patient is being discharged to home today with no needs. The patient's girlfriend will provide transportation home. CM continues to be available to
patient/family and is monitoring medical plan for needs at discharge.
Plan: Discharge to home today.
--- NOTE | 2023-05-14 13:15 | W.DCSUMMARY ---
Discharge Summary
Discharge Data
Date of Admission: 05/12/23
Date of Discharge: 05/14/23
-
Pending Results: No
Hospital Course
Principal Diagnosis:
Septic Bursitis Right Elbow, failed outpatient oral antibiotic with doxycycline
Vasovagal Syncope secondary to the above
Chronic Diagnoses:�
None
Consultations:�
Infectious disease
[employer]
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
Procedures:�
IR US guided arthrocentesis 05/12
Clinical course:�
This is a 17 year old male with no significant PMH who presented to ED complaining of 3 days of R elbow pain.�Patient stated that he was doing repetitive yard work, but denies any injury, trauma, etc.�He noted increased swelling and redness
around the elbow.
Problem 1:
Septic Bursitis Right Elbow, failed outpatient oral antibiotic with doxycycline.
He was treated with IV vancomycin initially but apparently did not tolerate it (possible red man syndrome) and antibiotic was changed to IV linezolid.
He can continue oral linezolid to complete total 14-day course following discharge.
Lyme serology was still pending at the time of discharge, and the patient can follow the result outpatient.
He underwent ultrasound-guided arthrocentesis by IR on 05/12, small amount of bursal fluid was extracted. The bursal fluid was negative for growth.
He can follow-up with orthopedics outpatient closely and if redness worsens he might need to consider bursectomy.
Problem 2:
Vasovagal Syncope, resolved uneventfully.
Discharge Plan
-
Patient Disposition: Home (Routine Discharge)
Discharge Diagnosis/Procedures: Septic Bursitis Right Elbow
Condition: Good
Diet: As tolerated
Activity: As tolerated
Additional Activity: Avoid strenous use of R elbow for 2 week (including driving) or until pain/redness has subsided
Driving Restrictions: Not until seen by your Dr
Activity Restrictions/Additional Instructions:
Close follow-up with orthopedic outpatient, if redness worsen of the right elbow, you might need to consider bursectomy.
Referrals:
NONE,* [Family Provider] - in less than 1 week
Additional Discharge Medication Instructions: Stop doxycline
Take Linizolid
Prescriptions:
New
linezolid 600 mg Tablet
600 mg PO BID 13 Days Qty: 26 0RF
Continued
therapeutic multivitamin Tablet
1 tab PO DAILY
[id number]-hgyhz-B6-G-chr 18.8-187.5-93.8 mg Capsule
1 cap PO DAILY
ibuprofen 600 mg tablet
600 mg PO Q6HPRN PRN (Reason: fever or pain)
Discontinued
doxycycline hyclate 100 mg tablet
100 mg PO BID Qty: 20 0RF
Discharge Orders:
Discharge Patient (As Directed); Ordered 05/14/23
Ordered By: Kristina Bacon
Discharge Date and Time
Discharge Date/Time: 05/14/23 10:29
[2023-05-16 15:50] LABS: Lyme Antibody Screen, EIA Presump. Positive (Negative)
[2023-05-20 19:08] LABS: Lyme Ab Western Blot IgG Positive (Negative); Lyme Ab Western Blot IgM Negative (Negative)
== END 2023-05-14 10:29 | disposition home or self-care (01) | DRG 558 ==
LOC: 2 NORTH 23:13
PROVIDERS: Clinical Nurse Specialist Family Health; Emergency Medicine; Nurse Practitioner; Radiology Vascular & Interventional Radiology; ADMITTING PHYSICIAN Hospitalist; ATTENDING PHYSICIAN Internal Medicine; CONSULT PHYSICIAN Specialist; CONSULT PHYSICIAN Student in an Organized Health Care Education/Training Program; EMERGENCY PHYSICIAN Emergency Medicine
PROC: 0R9L3ZX Drainage of Right Elbow Joint, Percutaneous Approach, Diagnostic (ICD-10-PCS; 2023-05-13)
DX: M71.121 Other infective bursitis, right elbow (principal); L03.113 Cellulitis of right upper limb; L29.9 Pruritus, unspecified
CPT/HCPCS: 20605; 76942; 80048; 80053; 83605; 85025; 85027; 86617; 86618; 87015; 87040; 87070; 87205; 93005; 96361; 96374; 99285; 99406; J2020